=== PATIENT | female | born 1950 | race Caucasian/White ===

== ENCOUNTER 2020-08-23 06:44 | Day surgery (SDC) | payer OTHER ==
[2020-08-19 16:40] LABS: Basophils % 0.9 % (0-1.3); Hematocrit 40.8 % (36.0-45.0); Lymphocytes % 33.4 % (15.3-44.8); MPV 8.9 fL (7.6-11.3); RBC Red Blood Cell Count 4.57 M/uL (3.86-4.86)
[2020-08-19 16:46] LABS: Potassium 3.9 mmol/L (3.5-5.1)
--- OUTSIDE RECORDS SUMMARY | 2020-08-23 06:48 | XMS REPORT | Summary of Care ---
:1950 Author Organization [facility] Address [address] [place] [address] Care Team Providers Name Role Phone Kurtis Primary Care Provider Reason for Visit Auth/Cert Status Reason Specialty Diagnoses / Referred By Referred To Procedures Contact Contact Heart Station Diagnoses [email or web address] [facility] Heart Station Procedures EKG-[address] [place] [address] Fax: Encounter Details Date Type Department Care Team Description 08/07/2020 Hospital Encounter [facility] Yolande Sanford, Sina Seran Radiology [address] [place] [address] [address] [place] [phone] Allergies No Known Allergiesdocumented as of this encounter (statuses as of 08/08/2020) Medications Medication Sig Dispensed Refills Start Date End Date Status simvastatin 20 mg Take 20 mg by 0 Active tablet mouth at bedtime. tiotropium bromide Inhale. 0 A ctive (SPIRIVA RESPIMAT) 1.25 mcg/actuation Mist budesonide-formoterol Inhale 2 Puffs 2 0 Active (SYMBICORT) 160-4.5 (two) times daily. mcg/actuation inhaler terazosin 2 mg capsule Take 2 mg by mouth 0 Active at bedtime. warfarin 2.5 mg tablet Take by mouth. 0 Active Diclofenac Sodium Apply 2mg - 4mg to 100 g 1 05/04/2019 Active (VOLTAREN) 1 % affected area 4 gelIndications: Left times daily shoulder pain, unspecified chronicity documented as of this encounter (statuses as of 08/08/2020) Active Problems Not on filedocumented as of this encounter (statuses as of 08/08/2020) Social History Tobacco Use Types Packs/Day Years Used Date Former Smoker Smokeless Tobacco: Never Used Alcohol Use Drinks/Week oz/Week Comments No Sex Assigned at Date Recorded Not on file COVID-19 Exposure Response Date Recorded In the last month, have you been in contact with No / Unsure 08/07/2020 1:42 PM 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 documented as of this encounter Last Filed Vital Signs Not on filedocumented in this encounter Plan of Treatment Date Type Specialty Care Team Description 08/15/2020 Appointment Radiology Sharla Hull [address] [place], [place] [address] Health Maintenance Due Date Last Done Comments HEPATITIS C (HCV) SCREEN 1950 Depression Screening 1962 DTaP,Tdap,and Td Vaccines (1 - 01/17/1971 Tdap) COLON CANCER SCREENING ANNUAL 01/17/2002 FIT/FOBT COLON CANCER SCREENING FIT DNA 01/17/2002 EVERY 3 YEARS COLON CANCER SCREENING 01/17/2002 SIGMOIDOSCOPY EVERY 5 YEARS Zoster Recombinant Vaccine 01/17/2002 (SHINGRIX) (1 of 2) LUNG CANCER SCREEN: Recommended 01/17/2007 for age 55-80 with 30 + pack year history Medicare Wellness Visit 01/17/2017 Osteoporosis Screening 01/17/2017 PNEUMOCOCCAL VACCINES 65+ (1 of 1 01/17/2017 - PPSV23) Breast Cancer Screening 11/03/2019 11/03/2018, 09/30/2017, (MAMMOGRAM) 08/24/2016, Additional history exists INFLUENZA VACCINE (#1) 2020 COLONOSCOPY 01/11/2029 01/11/2019 Colorectal Cancer Screening 01/11/2029 documented as of this encounter Procedures Procedure Name Priority Date/Time Associated Diagnosis Comme nts XR CHEST 2 VW Routine 08/07/2020 2:16 PM Pre-operative Result s for this COFFEE MAKER SERVICER laboratory examination proce dure are in the results section. documented in this encounter Results XR CHEST 2 VW (08/07/2020 2:16 PM COFFEE MAKER SERVICER) Specimen Narrative Performed At This result has an attachment that is no t available. HISTORY: Preop. PACS/VR/DOSE TECHNIQUE: PA and lateral views of the chest are obtai jim. Comparison is made with 07/26/2018 study. FINDINGS: No acute pneumonia detected. No pneumothorax or pleural effusion or pulmonary congestion. The exercise is normal. Scatt ered calcified granulomas in both lungs, mild generalized hyperinflat ion of both lungs and fibrosis mainly in the right lower lung noted. No comp ression fracture deformity detected in the thoracic vertebral bodies. CONCLUSIONS: Mild COPD and other chronic pulmonary richardson nges. No sign of acute cardiopulmonary disease. Procedure Note [facility], Radiant Results Inft User - 2019 2:34 PM COFFEE MAKER SERVICER HISTORY: Preop. TECHNIQUE: PA and lateral views of the c hest are obtained. Comparison is made with 07/26/2018 study. FINDINGS: No acute pneumonia detected. N o pneumothorax or pleural effusion or pulmonary congestion. The exercise is normal. Scattered calcified granulomas in both lungs, mild generaliz ed hyperinflation of both lungs and fibrosis mainly in the right lower lung noted. No compression fracture deformity detected in the thoracic verte bral bodies. CONCLUSIONS: Mild COPD and other chronic pulmonary changes. No sign of acute cardiopulmonary disease. Performing Organization Address City/State/Zipcode Phone Number PACS/VR/DOSE documented in this encounter Visit Diagnoses Diagnosis Pre-operative laboratory examination Pre-procedural laboratory examination documented in this encounter Insurance Payer Benefit Plan / Subscriber ID Effective Dates Phone Addre ss Type Group HUMANA - HUMANA [id number] 2017-[facility] Adv MANAGED MEDICARE ERS t PPO MEDICARE documented as of this encounter
--- OUTSIDE RECORDS SUMMARY | 2020-08-23 06:48 | XMS REPORT | Summary of Care ---
:1950 Author Organization [facility] Address [address] [place] [address] Care Team Providers Name Role Phone Kurtis Primary Care Provider Encounter Details Date Type Department Care Team Description 08/15/2020 Orders Only [facility] Doctor Unassigned, No [address] [facility] [place] [address] [address] [place] [address] Allergies No Known Allergiesdocumented as of this encounter (statuses as of 08/15/2020) Medications Medication Sig Dispensed Refills Start Date [...] as of this encounter (statuses as of 08/15/2020) Active Problems Not on filedocumented as of this encounter (statuses as of 08/15/2020) Social History Tobacco Use Types Packs/Day Years Used Date Former Smoker Smokeless Tobacco: Never Used Alcohol Use Drinks/Week oz/Week Comments No Sex Assigned at Date Recorded Not on file COVID-19 Exposure Response Date Recorded In the last month, have you been in contact with No / Unsure 08/07/2020 1:42 PM PRESSER ALL AROUND someone who was confirmed or suspected to have Coronavirus / COVID-19? documented as of this encounter Last Filed Vital Signs Not on filedocumented in this encounter Plan of Treatment Date Type Specialty Care Team Description 08/15/2020 Appointment Radiology Sharla Hull [address] [place], [place] [address] Health Maintenance Due Date [...] Name Priority Date/Time Associated Diagnosis Comme nts CONSENT/REFUSAL FOR Routine 08/15/2020 10:50 AM DIAGNOSIS AND TREATMENT PRESSER ALL AROUND ASSIGNMENT OF BENEFITS Routine 08/15/2020 10:50 AM PRESSER ALL AROUND documented in this encounter Results Not on filedocumented in this encounter Insurance Payer Benefit Plan / Subscriber ID Effective Dates Phone Addre ss Type Group HUMANA - HUMANA [id number] 2017- Adv MANAGED MEDICARE ERS t PPO MEDICARE documented as of this encounter
--- OUTSIDE RECORDS SUMMARY | 2020-08-23 06:48 | XMS REPORT | Summary of Care ---
:1950 Author Organization [facility] Address [address] [place] [address] Care Team Providers Name Role Phone Kurtis Primary Care Provider Reason for Referral Radiology Services (Routine) Status Reason Specialty Diagnoses / Referred By Referred To Procedures Contact Contact Closed Diagnostic Diagnoses Visit for screening mammogram Sharla Hull Radiology Procedures BI SCREENING TOMOSYNTHESIS BILATERAL [address] [facility] [address], [place] [address] Reason for Visit Radiology Services (Routine) Status Reason Specialty Diagnoses / Referred By Referred To Procedures Contact Contact Closed Diagnostic Diagnoses Visit for screening mammogram Sharla Hull Radiology Procedures BI SCREENING TOMOSYNTHESIS BILATERAL [address] [facility] [address], [place] [address] Encounter Details Date Type Department Care Team Description 08/15/2020 Hospital Encounter [facility] Sharla German [facility] Breast Imagi ng [address] [place] [address] [place], [place] [phone] [address] Allergies No Known Allergiesdocumented as of this encounter (statuses as of 08/16/2020) Medications Medication Sig Dispensed Refills Start Date [...] as of this encounter (statuses as of 08/16/2020) Active Problems Not on filedocumented as of this encounter (statuses as of 08/16/2020) Social History Tobacco Use Types Packs/Day Years Used Date Former Smoker Smokeless Tobacco: Never Used Alcohol Use Drinks/Week oz/Week Comments No Sex Assigned at Date Recorded Not on file COVID-19 Exposure Response Date Recorded In the last month, have you been in contact with No / Unsure 08/15/2020 11:12 AM RESIDENTIAL CASE MANAGER someone who was confirmed or suspected to have Coronavirus / COVID-19? documented as of this encounter Last Filed Vital Signs Not on filedocumented in this encounter Plan of Treatment Health Maintenance Due Date Last Done Comments [...] encounter Procedures Procedure Name Priority Date/Time Associated Comments Diagnosis BI SCREENING Routine 08/15/2020 11:25 Visit for screening Resu lts for this TOMOSYNTHESIS AM RESIDENTIAL CASE MANAGER mammogram procedure are in BILATERAL the results section. documented in this encounter Results BI SCREENING TOMOSYNTHESIS BILATERAL (08/15/2020 11:25 AM RESIDENTIAL CASE MANAGER) Specimen Narrative Performed At This result has an attachment that is no t available. Examination: PACS BI SCREENING TOMOSYNTHESIS BILATERAL History: Patient is 70 year old and is seen for: Visit for sc reening mammogram. Computer-aided detection (CAD) utilized. Comparisons: 11/03/2018 BI SCREENING TOMOSYNTHESIS JULEE ATERAL, 09/30/2017 SCREENING DIGITAL BREAST FÁTIMA, 08/24/2016 DIGITAL MAMM OGRAM, SCREENING, and 08/12/2015 DIGITAL MAMMOGRAM, SCREENING Findings: The breasts are almost entirely fatty. Right There is an intramammary lymph node seen in the upper outer quadrant of the right breast in the posterior depth on the CC view . Compared to the previous study, there are no significant changes. Bilateral There are vascular calcifications seen in both breasts . Impression: No signs of malignancy. Recommendation: Annual mammographic follow-up - Bilateral BI-RADS Category: Both 2 - Benign Performing Organization Address City/State/Zipcode Phone Number PACS documented in this encounter Visit Diagnoses Diagnosis Visit for screening mammogram Other screening mammogram documented in this encounter Insurance Payer Benefit Plan / Subscriber ID Effective Dates Phone Addre ss Type Group HUMANA - HUMANA [id number] 2017-[facility] Adv MANAGED MEDICARE ERS t PPO MEDICARE documented as of this encounter
--- OUTSIDE RECORDS SUMMARY | 2020-08-23 06:48 | XMS REPORT | Summary of Care ---
:1950 Author Organization [facility] Address [address] [place] [address] Care Team Providers Name Role Phone Kurtis Primary Care Provider Reason for Visit Reason Comments LAB WORK Auth/Cert Status Reason Specialty Diagnoses / Referred By Referred To Procedures Contact Contact Heart Station Diagnoses [email or web address] [facility] Heart Station Procedures EKG-12 [address] [place] [address] Fax: Encounter Details Date Type Department Care Team Description 08/07/2020 C S S Representative Visit [facility] Clayton Hull n [address] [facility] [facility] [facility] [address] [place] [address] Essential hypertension, malignant (Prima ry Dx); Professional Office Pob, [facility] Lab Main 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) Building Phlebotomy Lab Professional Office Building [address] [facility] [address] [place] [address] Allergies No Known Allergiesdocumented as of this encounter (statuses as of 08/07/2020) Medications Medication Sig Dispensed Refills Start Date [...] as of this encounter (statuses as of 08/07/2020) Active Problems Not on filedocumented as of this encounter (statuses as of 08/07/2020) Social History Tobacco Use Types Packs/Day Years Used Date Former Smoker Smokeless Tobacco: Never Used Alcohol Use Drinks/Week oz/Week Comments No Sex Assigned at Date Recorded Not on file COVID-19 Exposure Response Date Recorded In the last month, have you been in contact with No / Unsure 08/07/2020 1:42 PM DIRECTOR OF HEALTH 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 documented as of this encounter Last Filed Vital Signs Not on filedocumented in this encounter Nursing Notes Eugenia Soto - 08/07/2020 1:30 PM CST Venipuncture collection performed by clean technique on the right anticubitus. Total of 1 attempts were made. Slight pressure and a bandage/dressing were applied to the site(s). The patient experiencedno complications. The following specimens were processed according to instructions and sent to [facility] laboratories per lab order on [id number]: LT BLUE 1 SST RED 1 LAV PPT DK GREEN (LiHep) DK GREEN (SodH) ROBERTSON DK BLUE (K2) DK BLUE (S) ACD Blood Culture NIPT/NTD documented in this encounter Plan of Treatment Date Type Specialty Care Team Description 08/07/2020 Hospital Encounter Radiology Emile Sanford MD Arrived [address] [place] [address] Name Type Priority Associated Diagnoses Date/Ti me CBC WITH DIFF LAB Routine Essential hypertension, 2:00 PM DIRECTOR OF HEALTH EDUCATION malignant Iron deficiency anemia secondary to blood loss (chronic) BASIC METABOLIC PANEL LAB Routine Essential hypertens ion, 08/07/2020 2:00 PM DIRECTOR OF HEALTH EDUCATION (NA, K, CL, CO2, malignant GLUCOSE, BUN, Iron deficiency anemia CREATININE, 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) Name Type Priority Associated Diagnoses Order S chedule CBC WITH DIFF LAB Routine Essential hypertension, Exp ected: 08/07/2020, malignant Expires: 08/07/2021 Iron deficiency anemia secondary to blood loss (chronic) BASIC METABOLIC PANEL LAB Routine Essential hypertens ion, Expected: 08/07/2020, (NA, K, CL, CO2, malignant Expires: 08/07/2021 GLUCOSE, BUN, Iron deficiency anemia CREATININE, 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) Health Maintenance Due Date Last Done Comments [...] Screening 01/11/2029 documented as of this encounter Results Not on filedocumented in this encounter Visit Diagnoses Diagnosis Essential hypertension, malignant - Prim pk 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
--- OUTSIDE RECORDS SUMMARY | 2020-08-23 06:48 | XMS REPORT | Continuity of Care Document ---
:1950 Author Organization [facility] t Address [address] [place] [address] Dr. [address]. [address] [place] [address] Care Team Providers Name Role Phone Kurtis Attending Clinician Doctor Unassigned, Name Attending Clinician Unavailable Juvenal BLANCO Attending Clinician Pob, Lab Main Attending Clinician Unavailable Simon Rodrigues MD Attending Clinician Problems This patient has no known problems. Allergies, Adverse Reactions, Alerts This patient has no known allergies or adverse reactions. Medications This patient has no known medications. Procedures This patient has no known procedures. Encounters Start End Encounter Admission Attending Care Care Encounter Source Date/Time Date/Time Type Type Clinicians Facility Department ID 2020-08-15 2020-08-15 [facility] [id number] 11:00:00 23:59:00 Encounter Sharla Stern [id number] [place] [id number] [place] [phone] [id number] 2020-08-15 2020-08-15 Orders Doctor ANTONIA [id number] 00:00:00 00:00:00 Only Unassigned, [place] [id number] [place] [facility] [id number] 2020-08-07 2020-08-07 [facility] [id number] 13:52:03 23:59:00 Encounter Elian Leena [id number] [place] [id number] [place] [id number] 2020-08-07 2020-08-07 Credit And Collections Analyst Yony Osorio [facility] [id number] 13:45:42 14:00:42 Visit Lab Main Leena [id number] [place] [id number] Professio [id number] [address] 2019-05-04 2019-05-04 Office Lilia [facility] [id number] 10:15:06 11:12:03 Visit [facility] [id number] Surgical [id number] Specialti [phone] 198 [place] Results This patient has no known results.
[2020-08-23] MEDS ORDERED: CEFAZOLIN/SWI 1gm 1 GM/10 ML SYR ONE (07:19)
[2020-08-23] MEDS ORDERED: Ringers Lactate 1,000 ML IV ONE (07:19)
[2020-08-23] MEDS ORDERED: FENTANYL CITR 100 MCG/2 ML ONE (07:37)
[2020-08-23] MEDS ORDERED: MIDAZOLAM HCL 2 MG/2 ML INJ ONE (07:37)
[2020-08-23] MEDS ORDERED: LIDOCAINE 1% MPF 5 ML VIAL ONE (07:37)
[2020-08-23] MEDS ORDERED: propofoL 200 MG/20 ML VIAL IV ONE (07:37)
[2020-08-23] MEDS ORDERED: Mastisol Adhesive Liq ONE (08:21)
[2020-08-23] MEDS ORDERED: ONDANSETRON 4 MG/2 ML VIAL ONE (08:25)
[2020-08-23] MEDS ORDERED: dexAMETHasone 10 MG/ML VIAL ONE (08:25)
[2020-08-23] MEDS ORDERED: KETOROLAC 30 MG/ML INJ ONE (08:25)
--- NOTE | 2020-08-23 08:31 | P.BOP ---
Preoperative diagnosis: Tender left shoulder and right neck subQ mass Postoperative diagnosis: same Primary procedure: 1. Excisional biopsy left shoulder subQ mass 4.5 x 4.5cm layer closure Secondary procedure: 2. Excisional biopsy right neck subQ mass 3x3 cm layer closure Estimated blood loss: <10cc Specimen: mass Findings: as above Anesthesia: General Complications: None Transferred to: Recovery Room Condition: Good
[2020-08-23 09:28] VITALS: BP 121/73; TEMP 97.1
--- NOTE | 2020-08-23 09:44 | DS ---
Diagnosis: Tender left shoulder and right neck subcutaneous masses. Procedure: Excision biopsy of left shoulder and right neck subcutaneous masses with layered closure. Disposition: Home. Activity: As tolerated. No heavy lifting. Follow in my office in 1 week. Call for appointment [phone]. Keep area dry for 48 hours, then may shower. Keep Steri-Strip intact. Medications: Tylenol No 3 q.4 hours p.r.n. pain, Bactrim DS p.o. b.i.d. NUVIA/CATHY Voice ID: [id number] Report ID: [id number]
[2020-08-23 09:52] VITALS: O2SAT 95
--- NOTE | 2020-08-23 09:54 | OP ---
Date of Procedure: 08/23/2020 Surgeon: Elian Sanford MD Preoperative Diagnosis: Tender subcutaneous neck mass and tender subcutaneous left upper shoulder ma ss. Postoperative Diagnosis: Tender subcutaneous neck mass and tender subcutaneous left upper shoulder m ass. Procedure: 1.Excisional biopsy of left tender shoulder subcutaneous mass 4.5 x 4.5 cm with layered closure. 2.Excisional biopsy of tender right neck subcutaneous mass, 3 x 3 cm with layered closure. Anesthesia: General plus local. Indications For Procedure: This is a case of a female, who comes to us with 2 tender masses, increas ing in size and discomfort and change in color. She wants them excised. The benefits, alternatives, and risks of excision fully explained which include, but not limited to infection, bleeding, damage to adjacent structures, anesthesia complication, recurrence, AR, and even . She also understood this may not relieve her symptoms. She might need more than one surgical intervention. She underst ood and signed a consent. The area of concern was marked by me and the patient in the holding room. Procedure In Detail: The patient brought to the operating room, placed in supine position. Anesthes ia was done without complication. The patient was placed in lateral decubitus position with proper p rotection. The right neck and left shoulder were prepped and draped in a sterile fashion. We procee ded to do a left shoulder, which is upper back left shoulder area first and wedge incision was made o n the skin since an incision was carried down to deep subcutaneous tissue where we find this mass goe s attached to the fascia of the muscle but does not penetrate the muscle and does not seem to be invo lved in any other structures. The mass was completely excised. The area was irrigated. Then, we pr oceeded to obtain hemostasis and closed the area with 3-0 chromic and the deep subcutaneous tissue an d another layer of 3-0 chromic and then the last layer of 3-0 chromic in a subcuticular fashion with Steri-Strips on top. Sponge count, instrument counts were correct. Local anesthesia was applied bef ore closure. A Steri-Strip was placed over the area and covered with sterile dressings. After that, we went to the right neck region, once again localized the area, made a wedge incision in the skin a ll the way down to subcutaneous tissue and the mass was completely excised in one unit. Irrigation w as done, hemostasis was obtained. Local anesthesia was applied and then we proceeded to close in lay ers with 3-0 chromic deep layers, 3-0 chromic mid layers and then 3-0 chromic in a subcuticular fashi on with Steri-Strips on top. Sponge count and instrument counts were correct. The patient tolerated the procedure well. The patient was sent to recovery in stable condition. NUVIA/CATHY Voice ID: [id number] Report ID: [id number]
== END 2020-08-23 09:43 | disposition home or self-care (01) ==
LOC: OR 06:44
PROVIDERS: ATTEND Surgery
PROC: 0JBF0ZZ Excision of Left Upper Arm Subcutaneous Tissue and Fascia, Open Approach (ICD-10-PCS; 2020-08-23)
PROC: 0JB40ZZ Excision of Right Neck Subcutaneous Tissue and Fascia, Open Approach (ICD-10-PCS; principal; 2020-08-23 07:30)
DX: L72.8 Other follicular cysts of the skin and subcutaneous tissue (principal); Z20.828 Contact with and (suspected) exposure to other viral communicable diseases; Z86.718 Personal history of other venous thrombosis and embolism; J44.9 Chronic obstructive pulmonary disease, unspecified; I10 Essential (primary) hypertension; K21.9 Gastro-esophageal reflux disease without esophagitis; E78.00 Pure hypercholesterolemia, unspecified
CPT/HCPCS: 85025; 80048; 36415; 88304; 11423; 12042; 11406; 12032; U0002; J2704; J2250; J3010; J1100; J0690; J7120; J2405; 88305